=== PATIENT | female | born 1995 | race Caucasian/White ===

== ENCOUNTER 2019-01-02 21:49 | Emergency (ER) | payer OTHER ==
[~2019-01-02] VITALS: Ht 160 cm; Wt 101.6 kg
[~2019-01-02 21:49] MED LIST: METF500T24 PO
[2019-01-02 22:00] VITALS: Ht 160 cm; Wt 101.6 kg
[2019-01-03] MEDS ORDERED: SOD CHLORIDE 0.9% 1,000 ML IV STA (03:31)
[2019-01-03] MEDS ORDERED: ONDANSETRON 4 MG INJ IV STA (03:31)
[2019-01-03] MEDS ORDERED: ACETAMINOPHEN 500 MG TAB PO STA (04:58)
[2019-01-03] MEDS ORDERED: ACET500C5 PO (05:57)
[2019-01-03] MEDS ORDERED: METO10TA92 PO (05:57)
--- NOTE | 2019-01-03 06:00 | ERD ---
ER Documentation Chief Complaint Chief Complaint constipation x5 days, +nausea/vomiting HPI Patient is a 23-year-old female with a history of diabetes, type II, non compliant with DM medications, who presents the ER for concerns of "feeling constipated" times 5 days. Patient states with eating, she feels nauseous and has been vomiting. Pt states that she "feels constipated" however she is "not constipated" as she has not been able to hold food down. She does report some mild pelvic cramping. Patient states that she has tried saline laxative, MiraLAX and prune juice for her constipation, however she has still not had a bowel movement. Patient denies any fevers, chills, dysuria, urgency, urgency or hematuria. Patient states she did have gallbladder surgery. No recent travel. LMP= Nov 2018, irregular periods. ROS All systems reviewed and are negative except as per history of present illness. Medications Home Meds Active Scripts Vit No.124/Iron/FA ( Vitamin Tablet) 1 Each Tablet, 1 EACH PO DAILY, #30 TAB Prov:DARRIN TILLEY PA-C 01/03/19 Acetaminophen* (Tylophen*) 500 Mg Capsule, 1 CAP PO Q6H PRN for PAIN AND OR ELEVATED TEMP, #20 CAP Prov:DARRIN TILLEY PA-C 01/03/19 Metoclopramide* (Reglan*) 10 Mg Tablet, 10 MG PO Q6 PRN for NAUSEA AND/OR VOMITING, #10 TAB Prov:DARRIN TILLEY PA-C 01/03/19 Reported Medications Metformin Hcl* (Metformin Hcl*) 500 Mg Tablet, 500 MG PO WITH BREAKFAST, #30 TAB 03/23/18 Allergies Allergies: Coded Allergies: No Known Allergies (Verified Allergy, Unknown, 03/23/18) PMhx/Soc History of Surgery: Yes (L wrist cyst removal,gallstones removed) Anesthesia Reaction: No Hx Neurological Disorder: No Hx Respiratory Disorders: No Hx Cardiac Disorders: No Hx Psychiatric Problems: No Hx Miscellaneous Medical Probl: Yes (NIDDM,ovarian cyst) Hx Alcohol Use: Yes (ETOH abuse,quit) Hx Substance Use: No Hx Tobacco Use: Yes (quit) Smoking Status: Former smoker FmHx Family History: No diabetes Physical Exam Vitals Vital Signs Date Temp Pulse Resp B/P (MAP) Pulse Ox O2 O2 Flow FiO2 Time Delivery Rate 01/03/19 92 18 139/76 18 Room Air 07:01 (97) 01/02/19 97.8 95 20 154/94 99 22:00 (114) Physical Exam GENERAL: Well-developed, well-nourished female. Appears in no acute distress. Speaking in full sentences. HEAD: Normocephalic, atraumatic. EYES: Pupils are equally reactive bilaterally. EOMs grossly intact. No conjunctival erythema. ENT: Moist mucous membranes. No uvula deviation. No kissing tonsils. NECK: Supple. No meningismus. Normal range of motion of the neck. LUNG: Clear to auscultation bilaterally. No rhonchi, wheezing, rales or coarse b reath sounds. HEART: Regular rate and rhythm. No murmurs, rubs or gallops. ABDOMEN:Soft, nontender, and nondistended. No rebound tenderness, no guarding. (-) McBurney's point tenderness. No CVA tenderness. EXTREMITIES: Equal pulses bilaterally. No peripheral clubbing, cyanosis or edema. No unilateral leg swelling. NEUROLOGIC: Alert and oriented. Moving all four extremities without any difficulty. Normal speech. Steady gait. SKIN: Normal color. Warm and dry. No rashes or lesions. Result Diagram: 01/03/19 0352 01/03/19 0352 Results 24 hrs Laboratory Tests Test 01/03/19 03:52 01/03/19 04:53 01/03/19 05:31 White Blood Count 13.8 10^3/ul Red Blood Count 5.21 10^6/ul Hemoglobin 15.0 g/dl Hematocrit 44.6 % Mean Corpuscular Volume 85.6 fl Mean Corpuscular Hemoglobin 28.8 pg Mean Corpuscular 33.6 g/dl Hemoglobin Concent Red Cell Distribution Width 11.8 % Platelet Count 343 10^3/UL Mean Platelet Volume 9.9 fl Immature Granulocytes % 0.600 % Neutrophils % 67.0 % Lymphocytes % 25.2 % Monocytes % 5.9 % Eosinophils % 0.8 % Basophils % 0.5 % Nucleated Red Blood Cells % 0.0 /100WBC Immature Granulocytes # 0.080 10^3/ul Neutrophils # 9.2 10^3/ul Lymphocytes # 3.5 10^3/ul Monocytes # 0.8 10^3/ul Eosinophils # 0.1 10^3/ul Basophils # 0.1 10^3/ul Nucleated Red Blood Cells # 0.0 10^3/ul Sodium Level 141 mmol/L Potassium Level 3.5 mmol/L Chloride Level 106 mmol/L Carbon Dioxide Level 25 mmol/L Anion Gap 10 Blood Urea Nitrogen 10 mg/dl Creatinine 0.58 mg/dl Est Glomerular Filtrat > 60 mL/min Rate mL/min Glucose Level 129 mg/dl Calcium Level 9.5 mg/dl Total Bilirubin 1.3 mg/dl Direct Bilirubin 0.00 mg/dl Indirect Bilirubin 1.3 mg/dl Aspartate Amino 57 IU/L Transf (AST/SGOT) Alanine 108 IU/L Aminotransferase (ALT/SGPT) Alkaline Phosphatase 115 IU/L Total Protein 7.8 g/dl Albumin 4.5 g/dl Globulin 3.30 g/dl Albumin/Globulin Ratio 1.36 Lipase 96 U/L Beta HCG, Quantitative 232.1 mIU/ml POC Beta HCG, Qualitative POSITIVE Urine Color YELLOW Urine Clarity SLIGHTLY CLOUDY Urine pH 5.0 Urine Specific [place] 1.025 Urine Ketones 2+ mg/dL Urine Nitrite NEGATIVE mg/dL Urine Bilirubin NEGATIVE mg/dL Urine Urobilinogen 1+ mg/dL Urine Leukocyte Esterase TRACE Shelly/ul Urine Microscopic RBC 3 /HPF Urine Microscopic WBC 7 /HPF Urine Squamous Epithelial Cells MANY /HPF Urine Bacteria FEW /HPF Urine Mucus MANY /HPF Urine Hemoglobin NEGATIVE mg/dL Urine Glucose NEGATIVE mg/dL Urine Total Protein NEGATIVE mg/dl Current Medications Medications Dose Sig/Armando Start Time Status Last (Trade) Ordered Route PRN Stop Time Admin Dose Reason Admin Sodium 1,000 ml @ Q1H STAT 01/03/19 DC 01/03/19 Chloride 1,000 mls/hr IV 03:31 03:57 01/03/19 04:30 Ondansetron 4 mg ONCE STAT 01/03/19 DC 01/03/19 HCl (Zofran IV 03:31 04:34 Inj) 01/03/19 03:33 1,000 mg ONCE STAT 01/03/19 DC 01/03/19 Acetaminophen PO 04:58 05:11 (Tylenol 01/03/19 04:59 Tab) Procedures/MDM ED COURSE: The patient was stable throughout ED course. I kept the patient and/or family informed of laboratory and diagnostic imaging results throughout the ED course. DIAGNOSTIC IMAGING: Read by radiologist. PROCEDURES: None. MEDICATIONS GIVEN: IV fluids, Zofran (given by nursing staff prior to test reslts) Patient tolerated medication well with no adverse reactions. MEDICAL DECISION MAKING: Patient is a 23-year-old female with history of diabetes, type II, noncompliant with DM medication, presents the ER for concerns of "feeling constipated" times 5 days. Per patient, she "feels constipated" however she is "not constipated" as she has not been able to hold down any food secondary to nausea and vomiting. Vital signs were reviewed. Patient is afebrile. Patient was not hypoxic. Patient was hemodynamically stable. IV line was established. Patient was given IVF and Zofran. Blood work was obtained. CBC showed slight elevation of WBC count, noted to be 13.8, likely due to nausea and vomiting as well as state. CMP showed no evidence of electrolyte abnormalities, severe acidosis, alkalosis, renal failure. Indirect bilirubin was noted to be 1.3, AST of 57, ALT of 108. Patient denied any right upper quadrant pain. Low suspicion for acute gallbladder etiology.. Lipase showed no evidence of acute pancreatitis. Urine test was positive. Urine test findings were discussed with patient. Patient was not aware that she was . This is an incidental finding for the patient. Patient admitted a history of irregular periods. B-HCG was ordered and noted to be 232.1. Pelvic ultrasound was ordered and results pending. UA results pending. Patient's nausea/ vomiting likely related to . Unable to obtain KUB as patient is . Patient had no vomiting throughout ED course. Low suspicion for bowel obstruction. Low suspicion for DKA, as blood sugar, bicarb were within normal limits, Patient aware that she will need to return in 2 days for re-check of symptoms. Patient advised that she will also need to follow up with OBGYN. Patient advised to discuss DM medications with OBGYN. Referral information will be provided. 6:00am- Case will be signed out to oncoming provider, Dr. Stevie March, pending pelvic ultrasound and UA results. Urine shows trace leukocyte esterase and few white blood cells although many epithelial cells suggesting dirty catch. Patient denies any urinary symptoms so we will defer treatment for now. Pelvic ultrasound shows no visible intrauterine or extrauterine or adnexal masses. Differential includes early normal , ectopic , threatened . Patient will be discharged home with recommendations for 2-day recheck of hCG and possibly ultrasound to evaluate for ectopic. She should return sooner for new or worseni ng symptoms, pain, fever, bleeding, additional symptoms. Departure Diagnosis: Primary Impression: state, incidental Additional Impression: Vomiting affecting Condition: Fair Patient Instructions: , Established, Normal Symptoms Referrals: [facility] YOU HAVE RECEIVED A MEDICAL SCREENING EXAM AND THE RESULTS INDICATE THAT YOU DO NOT HAVE A CONDITION THAT REQUIRES URGENT TREATMENT IN THE EMERGENCY DEPARTMENT. FURTHER EVALUATION AND TREATMENT OF YOUR CONDITION CAN WAIT UNTIL YOU ARE SEEN IN YOUR DOCTORS OFFICE WITHIN THE NEXT 1-2 DAYS. IT IS YOUR RESPONSIBILITY TO MAKE AN APPOINTMENT FOR FOLOW-UP CARE. IF YOU HAVE A PRIMARY DOCTOR --you should call your primary doctor and schedule an appointment IF YOU DO NOT HAVE A PRIMARY DOCTOR YOU CAN CALL OUR PHYSICIAN REFERRAL HOTLINE AT IF YOU CAN NOT AFFORD TO SEE A PHYSICIAN YOU CAN CHOSE FROM THE FOLLOWING [facility] [address] [facility] [address] [facility] [address] [facility] [address] [facility] [address] [facility]. [facility] [address] [facility]. [facility] YOU HAVE RECEIVED A MEDICAL SCREENING EXAM AND THE RESULTS INDICATE THAT YOU DO NOT HAVE A CONDITION THAT REQUIRES URGENT TREATMENT IN THE EMERGENCY DEPARTMENT. FURTHER EVALUATION AND TREATMENT OF YOUR CONDITION CAN WAIT UNTIL YOU ARE SEEN IN YOUR DOCTORS OFFICE WITHIN THE NEXT 1-2 DAYS. IT IS YOUR RESPONSIBILITY TO MAKE AN APPOINTMENT FOR FOLOW-UP CARE. IF YOU HAVE A PRIMARY DOCTOR --you should call your primary doctor and schedule and appointment IF YOU DO NOT HAVE A PRIMARY DOCTOR YOU CAN CALL OUR PHYSICIAN REFERRAL HOTLINE AT . IF YOU CAN NOT AFFORD TO SEE A PHYSICIAN YOU CAN CHOSE FROM THE FOLLOWING [facility] INSTITUTIONS: [facility] [address] [place] [address] [facility] [address] [place] [address] [facility] + [facility] [address] [facility] [place] [address] MEDIA SERVICES SPECIALIST [place] [address] [facility] [address] [place] [address] OFFICE FAX , [facility] [address] [place] [address] [address] ACUNA, [place] [address] [place] [address] [address] HARO, [facility] [address] [facility] [facility] [address] [address]AMSON, [facility] [address] [facility] [place] [address] [facility] [address] [place] [address] [address] [facility] [address] - URIEL TH[address]MAN [address], [place] [address] [address] [place] [address] [facility]. [address] [place] [address] [address] SIMON, [facility] [address] [place], [place] [id number] DARRIN TILLEY PA-C Jan 03, 2019 06:00 STEVIE MARCH MD Jan 03, 2019 06:44
[2019-01-03] MEDS ORDERED: PREN-93 PO (06:06)
[2019-01-03 07:01] VITALS: BP 139/76; PULSE 92; RESP 18
== END 2019-01-03 07:07 | disposition home or self-care (01) ==
LOC: FTE 21:49
DX: R11.10 Vomiting, unspecified (principal); E11.9 Type 2 diabetes mellitus without complications; R10.2 Pelvic and perineal pain; Z33.1 Pregnant state, incidental; Z79.84 Long term (current) use of oral hypoglycemic drugs; Z87.891 Personal history of nicotine dependence
CPT/HCPCS: 36415; 76801; 76817; 80053; 81001; 81025; 83690; 84702; 85025; 96361; 96374; J2405; J7030; Z7502; Z7610

== ENCOUNTER 2019-06-29 10:12 | Outpatient (CLI) | payer OTHER ==
[~2019-06-29 10:12] MED LIST changes: +ACET500C5 PO; +METO10TA92 PO; +PREN-93 PO
== END 2019-06-29 14:40 | disposition home or self-care (01) ==
LOC: OBT 10:12 → L-D 10:14 → OBT 14:40
PROVIDERS: ATTEND Obstetrics & Gynecology
DX: O26.893 Other specified pregnancy related conditions, third trimester (principal); R10.9 Unspecified abdominal pain; O24.415 Gestational diabetes mellitus in pregnancy, controlled by oral hypoglycemic drugs; Z3A.29 29 weeks gestation of pregnancy
CPT/HCPCS: 76817; 76818; 81001; 82962; 84112; 87086; Z7500; G0463

== ENCOUNTER 2019-09-04 15:19 | Inpatient (IN) | payer OTHER ==
[~2019-09-04] VITALS: Ht 160 cm; Wt 111.3 kg
[~2019-09-04 15:19] MED LIST changes: -ACET500C5 PO; -METO10TA92 PO
[2019-09-04 15:30] VITALS: Ht 160 cm; Wt 111.3 kg
[2019-09-04] MEDS ORDERED: LACTATED RINGER'S 1,000 ML IV PRN (15:32)
[2019-09-04 15:44] VITALS: BP 125/77; PULSE 100; RESP 17
[2019-09-04] MEDS ORDERED: OXYTOCIN 30 UNITS/LR 500 ML IV SCH ×2 (16:00)
[2019-09-04] MEDS ORDERED: LIDOCAINE 1% (MPF) 30 ML INJ INJ PRN (16:00)
[2019-09-04] MEDS ORDERED: OXYCODONE/ACETAMINOPHEN (5/325) TAB PO PRN (16:00)
[2019-09-04] MEDS ORDERED: MISOPROSTOL 200 MCG TAB PR PRN (16:00)
[2019-09-04] MEDS ORDERED: CARBOPROST 250 MCG INJ IM PRN (16:00)
[2019-09-04] MEDS ORDERED: AMPICILLIN 2 GM/NS (PMX) 100 ML IV ONE (16:00)
[2019-09-04] MEDS ORDERED: IBUPROFEN 600 MG TAB PO PRN (16:00)
[2019-09-04] MEDS ORDERED: OXYTOCIN 30 UNITS/LR 500 ML IV PRN (16:00)
[2019-09-04] MEDS ORDERED: BUTORPHANOL 2 MG INJ IV PRN (16:00)
[2019-09-04] MEDS ORDERED: METHYLERGONOVINE 0.2 MG INJ IM PRN (16:00)
[2019-09-04] MEDS ORDERED: MINERAL OIL LIGHT 10 ML VIAL TOP PRN (16:00)
[2019-09-04] MEDS: DEXTROSE 5%-LR 1,000 ML IV SCH (16:21)
[2019-09-04] MEDS: MISOPROSTOL 50 MCG CAPSULE PO SCH ×2 (17:11→21:19)
[2019-09-04] MEDS: LACTATED RINGER'S 1,000 ML IV SCH (17:11)
[2019-09-04] MEDS: ACETAMINOPHEN 325 MG TAB PO PRN ×2 (18:22→22:24)
[2019-09-04] MEDS ORDERED: GLUCOSE GEL 15 GRAM TUBE PO PRN ×2 (18:30)
[2019-09-04] MEDS ORDERED: DEXTROSE 50% 50 ML SYRINGE IV PRN ×2 (18:30)
[2019-09-04] MEDS ORDERED: GLUCAGON 1 MG INJ IM PRN (18:30)
[2019-09-04] MEDS ORDERED: GLUCOSE GEL 15 GRAM TUBE BUCCAL PRN (18:30)
[2019-09-04] MEDS ORDERED: ACCU-CHEK XX SCH (19:35)
[2019-09-04] MEDS: AMPICILLIN 1 GM/NS (PMX) 50 ML IV SCH (22:19)
[2019-09-05] MEDS: DEXTROSE 5%-LR 1,000 ML IV SCH (00:21)
[2019-09-05] MEDS: LACTATED RINGER'S 1,000 ML IV SCH ×4 (00:52→18:49)
[2019-09-05] MEDS: AMPICILLIN 1 GM/NS (PMX) 50 ML IV SCH ×6 (02:08→23:41)
[2019-09-05] MEDS: MISOPROSTOL 50 MCG CAPSULE PO SCH ×4 (02:08→16:13)
[2019-09-05] MEDS ORDERED: INSULIN ASPART [NOVOLOG] 3 ML PEN SC SCH (07:35)
[2019-09-05] MEDS: ACETAMINOPHEN 325 MG TAB PO PRN ×3 (10:55→19:50)
[2019-09-05] MEDS ORDERED: OXYTOCIN 30 UNITS/LR 500 ML IV SCH (20:00)
[2019-09-05] MEDS ORDERED: LACTATED RINGER'S 1,000 ML IV SCH (21:36)
[2019-09-05] MEDS ORDERED: hydrALAzine 20 MG INJ IV PRN (22:00)
[2019-09-05] MEDS ORDERED: MAGNESIUM SULFATE 4 GM/100 ML 100 ML IV SCH (22:00)
[2019-09-05] MEDS ORDERED: LABETALOL HCL 20MG INJ IV ONE (22:00)
[2019-09-05] MEDS ORDERED: LABETALOL HCL 20MG INJ IV PRN ×2 (22:00)
[2019-09-05] MEDS ORDERED: CA GLUCONATE (GM) 10% 10ML INJ IV PRN (22:00)
[2019-09-05] MEDS ORDERED: MAGNESIUM SULFATE 40GM/1000ML 1,000 ML IV SCH (22:00)
[2019-09-06] VITALS (9 sets, daily range): BP systolic 118–154; BP diastolic 71–94; PULSE 80–90; RESP 18–20
[2019-09-06] MEDS ORDERED: FENTAnyl 2MCG/ML-ROPIV 0.2% 100 ML ONE (00:42)
[2019-09-06] MEDS: AMPICILLIN 1 GM/NS (PMX) 50 ML IV SCH ×2 (04:08→08:05)
[2019-09-06] MEDS: DEXTROSE 5%-LR 1,000 ML IV SCH (06:05)
[2019-09-06] MEDS: ACETAMINOPHEN 325 MG TAB PO PRN (07:43)
[2019-09-06] MEDS ORDERED: ONDANSETRON 4 MG INJ IV PRN ×3 (09:00→13:00)
[2019-09-06] MEDS ORDERED: DIPHENHYDRAMINE 50 MG INJ IV PRN (10:00)
[2019-09-06] MEDS ORDERED: TRIMETHOBENZAMIDE 100 MG/ML VIAL IM PRN (10:00)
[2019-09-06] MEDS ORDERED: FENTAnyl 2MCG/ML-ROPIV 0.2% 100 ML BAG EPI SCH (10:00)
[2019-09-06] MEDS ORDERED: NALOXONE (0.4 MG/ML) INJ IV PRN (10:00)
[2019-09-06] MEDS ORDERED: morphine 10 MG INJ ONE (12:21)
[2019-09-06] MEDS ORDERED: morphine 10 MG INJ IV ONE (12:30)
[2019-09-06] MEDS ORDERED: OXYTOCIN 30 UNITS/LR 500 ML IV SCH (12:34)
[2019-09-06] MEDS ORDERED: OXYTOCIN 30 UNITS/LR 500 ML IV PRN (13:00)
[2019-09-06] MEDS ORDERED: HYDROCODONE/APAP (5/325) TAB PO PRN (13:00)
[2019-09-06] MEDS ORDERED: METHYLERGONOVINE 0.2 MG INJ IM PRN (13:00)
[2019-09-06] MEDS ORDERED: MISOPROSTOL 200 MCG TAB PR PRN (13:00)
[2019-09-06] MEDS ORDERED: NACL 0.9% 3 ML SYG IV SCH (13:00)
[2019-09-06] MEDS ORDERED: CARBOPROST 250 MCG INJ IM PRN (13:00)
[2019-09-06] MEDS ORDERED: BENZOCAINE 20% 56 ML SPRAY TOP PRN (16:00)
[2019-09-06] MEDS ORDERED: WITCH HAZEL/GLYCERIN PAD PR PRN (16:00)
[2019-09-06] MEDS ORDERED: LANOLIN HPA 1 PKT TOP PRN (16:00)
[2019-09-06] MEDS: HYDROCODONE/APAP (5/325) TAB PO PRN ×2 (16:06→21:06)
[2019-09-06] MEDS: MAGNESIUM SULFATE 40GM/1000ML 1,000 ML IV SCH (17:40)
[2019-09-06] MEDS: INSULIN ASPART [NOVOLOG] 3 ML PEN SC SCH ×2 (18:05→21:00)
[2019-09-07] VITALS (15 sets, daily range): BP systolic 102–143; BP diastolic 61–94; PULSE 71–97; RESP 16–20
[2019-09-07] MEDS: ACCU-CHEK XX SCH (02:00)
[2019-09-07] MEDS: HYDROCODONE/APAP (5/325) TAB PO PRN (04:33)
[2019-09-07] MEDS: INSULIN ASPART [NOVOLOG] 3 ML PEN SC SCH ×4 (08:43→21:00)
[2019-09-07] MEDS: LACTATED RINGER'S 1,000 ML IV SCH (10:38)
[2019-09-07] MEDS: IBUPROFEN 600 MG TAB PO PRN (11:25)
[2019-09-07] MEDS: MAGNESIUM SULFATE 40GM/1000ML 1,000 ML IV SCH (12:28)
[2019-09-07] MEDS ORDERED: LABETALOL 200 MG TAB PO PRN (13:00)
[2019-09-08] VITALS: BP 148/88; PULSE 84
[2019-09-08] MEDS: LACTATED RINGER'S 1,000 ML IV SCH ×2 (00:20→13:40)
[2019-09-08] MEDS: ACCU-CHEK XX SCH (02:00)
[2019-09-08 04:00] VITALS: BP 133/79; PULSE 81; RESP 18
[2019-09-08] MEDS: IBUPROFEN 600 MG TAB PO PRN ×2 (04:16→12:36)
[2019-09-08 08:00] VITALS: BP 117/66; PULSE 75; RESP 20
[2019-09-08] MEDS: INSULIN ASPART [NOVOLOG] 3 ML PEN SC SCH ×2 (08:50→12:45)
== END 2019-09-08 15:44 | disposition home or self-care (01) | DRG 807 ==
LOC: L-D 15:19 → PP1 09-06 14:45 → EDSTATUS 09-12 15:17
PROVIDERS: ADMIT Obstetrics & Gynecology; ATTEND Obstetrics & Gynecology
PROC: 10E0XZZ Delivery of Products of Conception, External Approach (ICD-10-PCS; principal; 2019-09-06)
PROC: 0HQ9XZZ Repair Perineum Skin, External Approach (ICD-10-PCS; 2019-09-06)
PROC: 3E033VJ Introduction of Other Hormone into Peripheral Vein, Percutaneous Approach (ICD-10-PCS; 2019-09-06)
DX: O14.94 Unspecified pre-eclampsia, complicating childbirth (principal); O99.214 Obesity complicating childbirth; E66.01 Morbid (severe) obesity due to excess calories; O70.0 First degree perineal laceration during delivery; Z3A.39 39 weeks gestation of pregnancy; Z37.0 Single live birth
CPT/HCPCS: 62322; 80053; 81001; 82962; 83735; 84560; 85025; 85610; 85730; 86592; 86850; 86900; 86901; 87340; J0290; J0595; J1815; J2210; J2270; J2405; J2590; J3010; J7120; J7121